=== PATIENT | male | born 1980 | race Caucasian/White ===

== ENCOUNTER → 2017-08-20 | Outpatient (CLI) | payer BC ==
[~2017-08-20] MED LIST: FLEXERIL 1010 MG/TAB PO; FLEXERIL10 MG PO; INDOCIN25 MG PO; NO HOME MEDICATIONS
[2017-08-20 12:22] LABS: HEMATOCRIT 43.6 % (42.0-52.0); HEMOGLOBIN 15.2 g/dl (13.5-18.0); MEAN CELL VOLUME 90 fl (80.0-100.0); MEAN CORPUSCULAR HEMOGLOBIN 31 pg (27.0-31.0); MEAN CORPUSCULAR HGB CONC 35 g/dl (33.0-37.0); MEAN PLATELET VOLUME 9.6 fl (7.4-10.4); PLATELET COUNT 261 K/mm3 (130-400); RED BLOOD COUNT 4.84 M/mm3 (4.20-5.60); REDCELL DISTRIBUTION WIDTH-CV 13.1 % (11.5-14.5)
[2017-08-20 12:28] LABS: INR 1.7 (0.8-3.0); PROTHROMBIN TIME 19.7 SECONDS (9.7-12.8)
[2017-08-20 12:34] LABS: ALBUMIN 5.5 gm/dL (3.5-5.0); BILIRUBIN,TOTAL 1.7 mg/dL (0.0-1.0); CALCIUM 10.1 mg/dL (8.4-10.2); CHOLESTEROL RISK RATIO 4.4; CREATININE, serum 1.01 mg/dL (0.66-1.25); TOTAL PROTEIN 8.6 gm/dL (6.4-8.2)
[2017-08-20 13:06] LABS: THYROID STIMULATING HORMONE 2.64 uIU/mL (0.465-4.680)
== END ==
LOC: COL.RAD 12:01
PROVIDERS: Family Medicine
DX: Z00.00 Encounter for general adult medical examination without abnormal findings (principal); R07.89 Other chest pain; Z95.828 Presence of other vascular implants and grafts; Z79.01 Long term (current) use of anticoagulants

== ENCOUNTER 2018-03-03 22:32 | Emergency (ER) | payer BC ==
[~2018-03-03] VITALS: Ht 198.1 cm; Wt 130.5 kg
[2018-03-03 22:41] VITALS: TEMP 98.3
[2018-03-03 23:01] LABS: BASO # 0.1 (0.0-0.2); BASO % 0.8 % (0.0-2.0); EOS # 0.2 (0.0-0.7); EOS % 2.9 % (0-4.0); GRAN # 3.1 (1.4-6.5); GRAN % 50.2 % (42.2-75.2); HEMOGLOBIN 13.6 g/dl (13.5-18.0); LYMPH # 2.2 (1.2-3.4); LYMPH % 36.4 % (20.0-51.0); MEAN CELL VOLUME 91 fl (80.0-100.0); MEAN CORPUSCULAR HEMOGLOBIN 31 pg (27.0-31.0); MEAN CORPUSCULAR HGB CONC 34 g/dl (33.0-37.0); MEAN PLATELET VOLUME 9.6 fl (7.4-10.4); MONO # 0.6 (0.1-0.6); MONO % 9.5 % (1.7-9.3); PLATELET COUNT 257 K/mm3 (130-400); RED BLOOD COUNT 4.42 M/mm3 (4.20-5.60); REDCELL DISTRIBUTION WIDTH-CV 13.1 % (11.5-14.5)
[2018-03-03 23:05] LABS: PROTHROMBIN TIME 34.1 SECONDS (9.7-12.8)
[2018-03-03 23:12] LABS: ALANINE AMINOTRANSFERASE 47 U/L (21-72); ALBUMIN 4.7 gm/dL (3.5-5.0); ALKALINE PHOSPHATASE 76 U/L (50-136); ANION GAP 11 mmol/L (7-16); AST,SGOT 44 U/L (15-37); BILIRUBIN,TOTAL 1.3 mg/dL (0.0-1.0); BLOOD UREA NITROGEN 19 mg/dL (9-20); CARBON DIOXIDE 28 mmol/L (22-30); CHLORIDE 99 mmol/L (98-107); CREATININE, serum 1.16 mg/dL (0.66-1.25); GLUCOSE 96 mg/dL (74-106); POTASSIUM 3.6 mmol/L (3.4-5.0); SODIUM 139 mmol/L (137-145); TOTAL PROTEIN 7.9 gm/dL (6.4-8.2)
[2018-03-03 23:13] LABS: D-DIMER < 200.00 ng/mLDDu (200-230)
[2018-03-03] MEDS ORDERED: HYZAAR 25 MG-101 TAB PO (23:20)
[2018-03-03] MEDS ORDERED: JANTOVEN3 M1 PO (23:20)
[2018-03-03] MEDS ORDERED: CRESTOR 10MG10 MG PO (23:21)
[2018-03-03] MEDS ORDERED: LEXAPRO 10MG10 MG PO (23:21)
[2018-03-03] MEDS ORDERED: COREG 25MG25 MG/TAB PO (23:21)
[2018-03-03 23:23] LABS: TROPONIN-I < 0.012 ng/mL (0.000-0.034)
[2018-03-04 02:06] VITALS: BP 116/82; PULSE 70
== END 2018-03-04 02:07 | disposition home or self-care (01) ==
LOC: COL.ER 22:32
PROVIDERS: Emergency Medicine
DX: R07.9 Chest pain, unspecified (principal); Z95.2 Presence of prosthetic heart valve; Z79.01 Long term (current) use of anticoagulants
CPT/HCPCS: Q9967

== ENCOUNTER 2018-11-18 13:35 | Emergency (ER) | payer BC ==
[~2018-11-18] VITALS: Ht 198.1 cm; Wt 133.2 kg
[~2018-11-18 13:35] MED LIST changes: +COREG 25MG25 MG/TAB PO; +CRESTOR 10MG10 MG PO; +HYZAAR 25 MG-101 TAB PO; +JANTOVEN3 M1 PO; +LEXAPRO 10MG10 MG PO
[2018-11-18 13:40] VITALS: TEMP 97.9
[2018-11-18] MEDS ORDERED: ASPIRIN 81M81 MG/TA2 PO (14:17)
[2018-11-18 14:43] LABS: BASO # 0.1 (0.0-0.2); BASO % 1.5 % (0.0-2.0); EOS # 0.2 (0.0-0.7); GRAN # 3.1 (1.4-6.5); HEMATOCRIT 39.1 % (42.0-52.0); HEMOGLOBIN 13.6 g/dl (13.5-18.0); LYMPH # 1.5 (1.2-3.4); LYMPH % 27.7 % (20.0-51.0); MEAN CELL VOLUME 89 fl (80.0-100.0); MEAN CORPUSCULAR HEMOGLOBIN 31 pg (27.0-31.0); MEAN CORPUSCULAR HGB CONC 35 g/dl (33.0-37.0); MEAN PLATELET VOLUME 9.4 fl (7.4-10.4); MONO # 0.6 (0.1-0.6); MONO % 10.4 % (1.7-9.3); PLATELET COUNT 271 K/mm3 (130-400); RED BLOOD COUNT 4.42 M/mm3 (4.20-5.60); REDCELL DISTRIBUTION WIDTH-CV 13.3 % (11.5-14.5)
[2018-11-18 14:50] LABS: ALBUMIN 4.4 gm/dL (3.5-5.0); BILIRUBIN,TOTAL 1.3 mg/dL (0.0-1.0); CALCIUM 9.6 mg/dL (8.4-10.2); CREATININE, serum 1.05 (0.66-1.25); POTASSIUM 3.6 mmol/L (3.4-5.0); TOTAL PROTEIN 7.8 gm/dL (6.4-8.2)
[2018-11-18 15:22] LABS: INR 2.1 (0.8-3.0)
[2018-11-18 16:19] VITALS: BP 122/90; PULSE 72
== END 2018-11-18 16:22 | disposition home or self-care (01) ==
LOC: COL.ER 13:35
PROVIDERS: Emergency Medicine
DX: R09.1 Pleurisy (principal)